=== PATIENT | male | born 2005 | race Caucasian/White ===

== ENCOUNTER 2024-05-05 23:30 | Emergency (ER) | payer OTHER ==
[~2024-05-05] VITALS: Ht 185.4 cm; Wt 68.0 kg
[2024-05-05] MEDS ORDERED: Tdap Vaccine 0.5 ML SYR (Adult Vaccine) IM ONE (23:55)
[2024-05-06] MEDS ORDERED: ACETAMINOPHEN 325 MG TAB PO ONE (00:35)
[2024-05-06] MEDS ORDERED: CEPHALEXIN500 M1 PO (02:00)
== END 2024-05-06 02:05 | disposition home or self-care (01) ==
LOC: ED 23:30
DX: S01.01XA Laceration without foreign body of scalp, initial encounter (principal); S50.311A Abrasion of right elbow, initial encounter; S70.211A Abrasion, right hip, initial encounter; S80.211A Abrasion, right knee, initial encounter; S20.419A Abrasion of unspecified back wall of thorax, initial encounter; Z88.8 Allergy status to other drugs, medicaments and biological substances; Z87.891 Personal history of nicotine dependence; V19.9XXA Pedal cyclist (driver) (passenger) injured in unspecified traffic accident, initial encounter; Y93.89 Activity, other specified; Y92.410 Unspecified street and highway as the place of occurrence of the external cause; Y99.8 Other external cause status

== ENCOUNTER 2025-03-20 22:15 | Emergency (ER) | payer OTHER ==
[~2025-03-20] VITALS: Ht 187.9 cm; Wt 68.0 kg
[~2025-03-20 22:15] MED LIST: CEPHALEXIN500 M1 PO
[2025-03-20 22:45] LABS: BASO # 0.0 10*3/uL (0.0-0.1); BASO % 0.3 % (0.0-1.0); EOS # 0.0 10*3/uL (0.0-0.4); EOS % 0.0 % (1.0-4.0); MEAN CELL VOLUME 89.6 fl (80.0-94.0); MEAN CORPUSCULAR HGB 29.7 pg (27.0-31.0); MEAN PLATELET VOLUME 9.6 fl (9.6-12.3); MONO # 0.6 10*3/uL (0.1-1.0); MONO % 4.3 % (3.0-9.0); NEUT # 12.0 10*3/uL (2.3-7.9); NEUT % 89.9 % (47.0-73.0); NUCLEATED RED BLOOD CELL 0.0 % (0.0-0.0); NUCLEATED RED BLOOD CELL 0.0 10*3/uL (0.0-0.0); PLATELET COUNT AUTOMATED 288 10*3/uL (130-400); RED CELL DISTRI WIDTH 11.9 % (0-14.5)
[2025-03-20 23:05] LABS: BUN 21 mg/dl (9-23); CPK 143 U/L (34-171)
[2025-03-20] MEDS ORDERED: Ondansetron Hydrochloride 4 MG/2 ML VIAL IV ONE (23:10)
[2025-03-20] MEDS ORDERED: SODIUM CHLORIDE 0.9% 1,000 ML IV ONE (23:10)
== END 2025-03-20 23:55 | disposition home or self-care (01) ==
LOC: ED 22:15
PROVIDERS: Internal Medicine
DX: T67.9XXA Effect of heat and light, unspecified, initial encounter (principal); D72.829 Elevated white blood cell count, unspecified; R11.2 Nausea with vomiting, unspecified; R25.1 Tremor, unspecified; Z88.6 Allergy status to analgesic agent; Z88.8 Allergy status to other drugs, medicaments and biological substances; X32.XXXA Exposure to sunlight, initial encounter; Y93.89 Activity, other specified; Y92.89 Other specified places as the place of occurrence of the external cause; Y99.8 Other external cause status

== ENCOUNTER 2025-03-24 22:13 | Emergency (ER) | payer OTHER ==
[~2025-03-24] VITALS: Ht 187.9 cm; Wt 68.0 kg
[2025-03-24] MEDS ORDERED: LORazepam 1 MG TAB PO ONE (22:35)
== END 2025-03-24 23:58 | disposition home or self-care (01) ==
LOC: ED 22:13
DX: F41.9 Anxiety disorder, unspecified (principal); Z88.6 Allergy status to analgesic agent; Z88.8 Allergy status to other drugs, medicaments and biological substances

== ENCOUNTER 2025-03-28 03:18 | Emergency (ER) | payer OTHER ==
[~2025-03-28] VITALS: Ht 187.9 cm; Wt 68.0 kg
[2025-03-28] MEDS ORDERED: FAMOTIDINE 50 ML IV ONE ×2 (03:45)
[2025-03-28] MEDS ORDERED: diphenhydrAMINE hydrochloride 50 MG/ML VIAL IV ONE (03:45)
[2025-03-28] MEDS ORDERED: BENADRYL ALLERG25 M5 PO (06:31)
[2025-03-28] MEDS ORDERED: ACID CONTROLLER20 M1 PO (06:31)
[2025-03-28] MEDS ORDERED: PREDNISONE50 MG PO (06:31)
[2025-03-28] MEDS ORDERED: EPIPEN 2-P0.3 MG/0.3 IJ (06:31)
== END 2025-03-28 06:35 | disposition home or self-care (01) ==
LOC: ED 03:18
DX: T78.49XA Other allergy, initial encounter (principal); Z88.6 Allergy status to analgesic agent; Z88.8 Allergy status to other drugs, medicaments and biological substances; Z91.018 Allergy to other foods; X58.XXXA Exposure to other specified factors, initial encounter

== ENCOUNTER 2025-04-02 19:17 | Emergency (ER) | payer OTHER ==
[~2025-04-02] VITALS: Ht 187.9 cm; Wt 68.0 kg
[~2025-04-02 19:17] MED LIST changes: +ACID CONTROLLER20 M1 PO; +BENADRYL ALLERG25 M5 PO; +EPIPEN 2-P0.3 MG/0.3 IJ; +PREDNISONE50 MG PO
[2025-04-02] MEDS ORDERED: Dexamethasone Sodium Phospha 20 MG/5 ML VIAL IM ONE (19:50)
[2025-04-02] MEDS ORDERED: CEPHALEXIN500 M1 PO (19:55)
[2025-04-02] MEDS ORDERED: HYDROXYZINE HCL25 MG PO (19:55)
[2025-04-02] MEDS ORDERED: CEPHALEXIN 500 MG CAP PO ONE (19:55)
== END 2025-04-02 20:50 | disposition home or self-care (01) ==
LOC: ED 19:17
DX: L23.7 Allergic contact dermatitis due to plants, except food (principal); F41.9 Anxiety disorder, unspecified; Z79.899 Other long term (current) drug therapy; Z88.5 Allergy status to narcotic agent; Z88.6 Allergy status to analgesic agent; Z88.8 Allergy status to other drugs, medicaments and biological substances

== ENCOUNTER → 2025-05-23 | Outpatient (CLI) | payer OTHER ==
[~2025-05-23] MED LIST changes: +HYDROXYZINE HCL25 MG PO
== END | disposition home or self-care (01) ==
LOC: US 03:04
PROVIDERS: ATTEND Family Medicine
DX: S39.013A Strain of muscle, fascia and tendon of pelvis, initial encounter (principal); X58.XXXA Exposure to other specified factors, initial encounter; Y93.89 Activity, other specified; Y92.89 Other specified places as the place of occurrence of the external cause; Y99.8 Other external cause status

== ENCOUNTER 2025-06-01 20:15 | Emergency (ER) | payer OTHER ==
[2025-06-01] MEDS ORDERED: MELOXICAM15 MG PO (21:59)
== END 2025-06-01 22:11 | disposition home or self-care (01) ==
LOC: ED 20:15
DX: S50.02XA Contusion of left elbow, initial encounter (principal); Z91.018 Allergy to other foods; Z88.5 Allergy status to narcotic agent; Z88.8 Allergy status to other drugs, medicaments and biological substances; W10.9XXA Fall (on) (from) unspecified stairs and steps, initial encounter; Y93.89 Activity, other specified; Y92.89 Other specified places as the place of occurrence of the external cause; Y99.8 Other external cause status